=== PATIENT | male | born 1985 | race Caucasian/White ===

== ENCOUNTER 2021-03-13 16:10 | Emergency (ER) | payer OTHER ==
[~2021-03-13] VITALS: Ht 170.1 cm; Wt 74.8 kg
[2021-03-13 18:02] LABS: BASO # 0.1 10*3/uL (0.0-0.1); BASO % 0.6 % (0.0-1.0); EOS % 0.1 % (1.0-4.0); HEMATOCRIT 43.7 % (42.0-52.0); LYMPH # 1.7 10*3/uL (1.3-4.4); LYMPH % 19.8 % (27.0-41.0); MEAN CORPUSCULAR HGB 30.2 pg (27.0-31.0); MEAN CORPUSCULAR HGB CONC 35.5 g/dl (33.0-37.0); MONO # 0.4 10*3/uL (0.1-1.0); MONO % 4.8 % (3.0-9.0); NEUT # 6.5 10*3/uL (2.3-7.9); NEUT % 74.6 % (47.0-73.0); PLATELET COUNT AUTOMATED 331 10*3/uL (130-400); RED BLOOD COUNT 5.14 10*6/uL (4.50-5.90); RED CELL DISTRI WIDTH 12.5 % (0-14.5); WHITE BLOOD COUNT 8.7 10*3/uL (4.8-10.8)
[2021-03-13 18:17] LABS: ALBUMIN 3.8 gm/dl (3.1-4.5); ALKALINE PHOSPHATASE 106 U/L (45-117); BUN 21 mg/dl (7-24); CHLORIDE 102 mmol/L (98-107); CREATININE 0.86 mg/dL (0.70-1.30); POTASSIUM 3.6 mmol/L (3.5-5.1); SGOT/AST 51 IU/L (3-35); SGPT/ALT 86 U/L (12-78); SODIUM 137 mmol/L (136-145)
[2021-03-13 18:22] LABS: ETHYL ALCOHOL < 3.0 mg/dl (<3)
[2021-03-13 20:52] LABS: BILIRUBIN Negative (Negative); BLOOD 2+ (Negative); CLARITY Clear (Clear); COLOR Yellow (Yellow); GLUCOSE Negative (Negative); KETONE 2+ (Negative); LEUKO ESTERASE 1+ (Negative); NITRITE Negative (Negative); SPECIFIC GRAVITY >= 1.030 (1.001-1.030)
[2021-03-13 21:13] LABS: PH 8.5 (4.5-8.0)
[2021-03-13 21:15] LABS: BACTERIA 1+; EPITHELIAL CELLS 16-20; RBC 21-30 rbc/hpf (0-2)
[2021-03-13 21:22] LABS: URINE AMPHETAMINES > 1000 (1000ng/ml); URINE BARBITURATES < 200 (200ng/ml); URINE BENZODIAZEPINES < 200 (200ng/ml); URINE CANNABINOIDS (THC) < 50 (50ng/ml); URINE COCAINE < 300 (300ng/ml); URINE METHADONE < 300 (300ng/ml); URINE OPIATES < 300 (300ng/ml)
[2021-03-13 21:26] LABS: URINE PHENCYCLIDINE < 25 (25ng/ml)
== END 2021-03-13 23:56 ==
LOC: ED 16:10
PROVIDERS: Physician Assistant
DX: E86.0 Dehydration (principal); F15.10 Other stimulant abuse, uncomplicated